=== PATIENT | male | born 1985 | race Caucasian/White ===

== ENCOUNTER 2020-08-21 08:18 | Outpatient (REF) | payer OTHER, SELFPAY ==
--- NOTE | 2020-08-21 09:31 | MHC.AU.P13 ---
Hearing Instrument Fitting- Adult- Binaural Date of Visit: 08/21/20 Hearing Instruments Dispensed: Right Ear: Emergency Room Doctor: Phonak Model: AUDEO M70-R Serial Number: [id number] Warranty: 10/10/2023 Battery Size: Rechargeable Color: CHESTNUT Food Mobile Driver: 1P Type of Dome: Small Power Type of Wax Guard: CERUSHIELD Left Ear: Emergency Room Doctor: Phonak Model: AUDEO M70-R Serial Number: [id number] Warranty: 10/10/2023 Battery Size: Rechargeable Color: CHESTNUT Food Mobile Driver: 1P Type of Dome: Small Power Type of Wax Guard: CERUSHIELD Summary of Fitting: Feedback production planning manager was run. Retention tails taken off the receivers, as they kept pulling the receivers back out of the ear. Verifit performed and levels adjusted to better reach targets. Patient felt 100% was too loud- lowered to 90% and then 80%. Patient felt 80% was comfortable. Patient was pleased with the sound of the instruments, and noted how much more he could now hear. Hearing aid care and maintenance were discussed and practiced. Hearing aids were paired to his phone. Patient had pre-downloaded the sera. Hearing aids paired to the sera. Recommendations: Recommendations: Patient is highly interested in a remote follow-up, as he has a 4 month old baby at home. He will register with Remote Support before the next appointment. His e-mail address is [email or web address] Diagnosis Code(s): Primary Diagnosis: H90.6 Mixed Hearing Loss, Bilateral Signature: Provider: Isela Omalley, [facility]
== END 2020-08-21 08:19 | disposition home or self-care (01) ==
LOC: HO.HAP 08:18
PROVIDERS: PCP Family Medicine; Referring Provider Family Medicine; Visit Provider Family Medicine
DX: H90.6 Mixed conductive and sensorineural hearing loss, bilateral (principal); Z46.1 Encounter for fitting and adjustment of hearing aid
CPT/HCPCS: 92595; V5011; V5020; V5160; V5261

== ENCOUNTER 2020-09-04 09:42 | Outpatient (REF) | payer SELFPAY ==
--- NOTE | 2020-09-04 14:35 | MHC.AU.P13 ---
Hearing Instrument Follow-Up- Binaural Date of Visit: 09/04/20 Right Ear: Corporation Lawyer: Model: AUDEO M70-R Serial Number: [id number] Warranty: 10/10/2023 Battery Size: Rechargeable Color: CHESTNUT Mallet And Die Cutter: 1P Type of Dome: Small Power Type of Wax Guard: CERUSHIELD Dispensed By: [facility] Left Ear: Corporation Lawyer: Phonak Model: AUDEO M70-R Serial Number: [id number] Warranty: 10/10/2023 Battery Size: Rechargeable Color: CHESTNUT Mallet And Die Cutter: 1P Type of Dome: Small Power Type of Wax Guard: CERUSHIELD Dispensed By: [facility] Follow-Up Summary: Patient was seen for hearing aid follow-up via Remote Support. Patient has been overall pleased with the hearing aids. He has been adjusting well, and [employer] shows an average of 14 hours of use a day. He does find that he has been frequently turning the volume down by one step. In [employer], lowered his overall gain by 1. Patient reports that the domes have been popping out of his ears frequently. He thinks the director industrial relations is a hair too short. We can try switching to a longer director industrial relations, as well as trying retention tails or different domes. If none of those options work, molds can be considered. Patient would like to avoid molds, as he says sometimes feeling too blocked can trigger his vertigo. Recommendations: I will ask the desktop manager to contact the patient this afternoon to set up an in-person hearing aid follow-up/maintenance. Diagnosis Code(s): Primary Diagnosis: H90.6 Mixed Hearing Loss, Bilateral Signature: Provider: Isela Omalley, [facility]
== END 2020-09-04 09:43 | disposition home or self-care (01) ==
LOC: HO.HAP 09:42
PROVIDERS: Visit Provider Family Medicine
DX: Z13.89 Encounter for screening for other disorder (principal)

== ENCOUNTER 2020-09-06 09:07 | Outpatient (REF) | payer SELFPAY ==
--- NOTE | 2020-09-06 13:22 | MHC.AU.P13 ---
Hearing Instrument Follow-Up- Binaural Date of Visit: 09/06/20 Right Ear: Slot Shift Manager: Model: AUDEO M70-R Serial Number: [id number] Warranty: 10/10/2023 Battery Size: Rechargeable Color: CHESTNUT Oil Well Directional Surveyor: 2P Type of Dome: Small Power Type of Wax Guard: CERUSHIELD Dispensed By: [facility] Date of Fittin08/21/2020 Left Ear: Slot Shift Manager: Phonak Model: AUDEO M70-R Serial Number: [id number] Warranty: 10/10/2023 Battery Size: Rechargeable Color: CHESTNUT Oil Well Directional Surveyor: 2P Type of Dome: Small Power Type of Wax Guard: CERUSHIELD Dispensed By: [facility] Date of Fittin08/21/2020 Follow-Up Summary: Patient dropped his hearings aid off and waited in the car. Replaced his size 1P receivers with size 2P receivers, as previously discussed in the remote support session. Placed retention tails on receivers. Gave a set of medium power domes to try in case receivers are still popping out. Recommendations: Patient will call if receivers continue to pop out of his ears. Diagnosis Code(s): Primary Diagnosis: H90.6 Mixed Hearing Loss, Bilateral Signature: Provider: Isela Omalley, [facility]
== END 2020-09-06 09:08 | disposition home or self-care (01) ==
LOC: HO.HAP 09:07
PROVIDERS: Visit Provider Family Medicine
DX: Z13.89 Encounter for screening for other disorder (principal)

== ENCOUNTER 2022-06-21 10:47 | Outpatient (REF) | payer SELFPAY ==
--- NOTE | 2022-06-21 12:46 | MHC.AU.HFU ---
Hearing Instrument Follow-Up- Binaural Date of Visit: 06/21/22 Right Ear: Brick Extruder Operator: Phonak Model: AUDEO M70-R Serial Number: [id number] Repair Warranty: 10/10/2023 Battery Size: Rechargeable Color: CHESTNUT Post Office Manager: 1P Type of Dome: Small Power Type of Wax Guard: CERUSHIELD Dispensed By: [facility] Date of Fittin08/21/2020 Left Ear: Brick Extruder Operator: Phonak Model: AUDEO M70-R Serial Number: [id number] Repair Warranty: 10/10/2023 Loss and Damage Warranty: Battery Size: Rechargeable Color: CHESTNUT Post Office Manager: 1P Type of Dome: Small Power Type of Wax Guard: CERUSHIELD Dispensed By: [facility] Date of Fittin08/21/2020 Follow-Up Summary: Hearing Aid Problem - Patient came to office reporting the left aid was and it is not charging properly. When right aid placed in stock insurance salesman in office, the light also did not come on indicating it was charging. Sent left and right aids in for repair under warranty. Patient's receivers and domes place on loaners (right-[id number] and left-[id number]) Recommendations: When repairs received, program aids to 09/04/2020 settings and call patient for P/U with $50.00 service fee per KG Signature:Provider: Ana Laura Nick, [facility]
== END 2022-06-21 10:48 | disposition home or self-care (01) ==
LOC: HO.HAP 10:47
PROVIDERS: Visit Provider Family Medicine
DX: Z13.89 Encounter for screening for other disorder (principal)

== ENCOUNTER 2022-07-22 11:12 | Outpatient (REF) | payer SELFPAY ==
--- NOTE | 2022-07-22 14:21 | MHC.AU.HFU ---
Hearing Instrument Follow-Up- Binaural Date of Visit: 07/22/22 Right Ear: Phonak Ana Lauraeo M70-R SN: [id number] Color: [place] Repair Warranty: 10/10/2023 Loss and Damage Warranty: 10/10/2023 Service Plan: 08/21/2021 Battery Size: Rechargeable Contract Negotiator: 1P Type of Mold: Small power dome Type of Wax Guard: CeruShield Dispensed By: [facility] Date of Fittin08/21/2020 Left Ear: Phonak Ana Lauraeo M70-R SN: [id number] Color: [place] Repair Warranty: 10/10/2023 Loss and Damage Warranty: 10/10/2023 Service Plan: 08/21/2021 Battery Size: Rechargeable Contract Negotiator: 1P Type of Mold: Small power dome Type of Wax Guard: CeruShield Dispensed By: [facility] Date of Fittin08/21/2020 Follow-Up Summary: Isaac picked up his repaired hearing aids and returned the loaners. Tried different size domes as Isaac reported some retention issues with the left hearing aid. Small power dome fits appropriately - Advised to push in further so that the seal mixing operator is flush against his head. Isaac reported that he has tried retention tails in the past but prefers no tail. Discussed option for custom ear molds. Isaac will consider ear molds if problems with retention persist. Recommendations: Hearing instrument maintenance in 6 months, or sooner if needed. Please contact our clinic with any questions or concerns. Diagnosis Code(s): Primary Diagnosis: H90.6 Mixed Hearing Loss, Bilateral Signature: Provider: Rupesh Jones, [facility]
== END 2022-07-22 11:13 | disposition home or self-care (01) ==
LOC: HO.HAP 11:12
PROVIDERS: Visit Provider Family Medicine
DX: Z46.1 Encounter for fitting and adjustment of hearing aid (principal); H90.3 Sensorineural hearing loss, bilateral
CPT/HCPCS: 92593

== ENCOUNTER 2022-08-22 15:45 | Outpatient (REF) | payer SELFPAY | END 2022-08-22 15:46 | disposition home or self-care (01) | LOC: HO.HAP 15:45 | PROVIDERS: Visit Provider Family Medicine | DX: Z13.89 Encounter for screening for other disorder (principal) ==

== ENCOUNTER 2022-08-26 13:02 | Outpatient (REF) | payer SELFPAY | END 2022-08-26 13:03 | disposition home or self-care (01) | LOC: HO.HAP 13:02 | PROVIDERS: Visit Provider Family Medicine | DX: Z13.89 Encounter for screening for other disorder (principal) ==

== ENCOUNTER 2022-09-12 09:48 | Outpatient (REF) | payer SELFPAY | END 2022-09-12 09:49 | disposition home or self-care (01) | LOC: HO.HAP 09:48 | PROVIDERS: Visit Provider Family Medicine | DX: Z13.89 Encounter for screening for other disorder (principal) ==

== ENCOUNTER 2022-11-18 09:22 | Outpatient (REF) | payer SELFPAY ==
--- NOTE | 2022-11-18 13:06 | MHC.AU.HA3 ---
Hearing Instrument Follow-Up- Binaural Date of Visit: 11/18/22 Right Ear: Maurice, Model, Color, Serial Number: Nick Briggs M70-R SN: [id number] Color: [place] Biochemistry Teacher Repair Warranty: 10/10/2023 Biochemistry Teacher Loss and Damage Warranty: 10/10/2023 [facility] Service Plan: 08/21/2021 Earmold/Dome/CShell/SlimTip:Small power dome Type of Wax Guard: CeruShield Dispensed By: [facility], Date of Fittin08/21/2020 Left Ear: Make, Model, Color, Serial Number: Nick Huntero M70-R SN: [id number] Color: [place] Biochemistry Teacher Repair Warranty: 10/10/2023 Biochemistry Teacher Loss and Damage Warranty: 10/10/2023 [facility] Service Plan: 08/21/2021 Earmold/Dome/CShell/SlimTip: Small power dome Type of Wax Guard: CeruShield Dispensed By: [facility], Date of Fittin08/21/2020 Follow-Up Summary: Patient dropped off his left hearing aid, reporting it had suddenly turned off and is now unresponsive. No visible damage on the hearing aid. Cannot turn it on with the button. Tried placing it in a stock ship's pilot, and it is not lighting up or charging. It will be sent to [facility] for repair. Called patient to discuss- he asked if he could sweet pickled fruit maker a pair of loaners, so he has a matching set until the hearing aid returns. Programmed a pair of loaner Phonak Audeo P70-R #[id number], [id number] to the settings from 08/26/22 (previous loaner). The loaners will be in the front office, and he plans to pick them up this afternoon. Recommendations: Patient will be contacted when materials have arrived. Diagnosis Code(s): Primary Diagnosis: H90.6 Mixed Hearing Loss, Bilateral Signature: Provider: Rupesh Omalley, [facility]
== END 2022-11-18 09:23 | disposition home or self-care (01) ==
LOC: HO.HAP 09:22
PROVIDERS: Visit Provider Family Medicine
DX: Z13.89 Encounter for screening for other disorder (principal)

== ENCOUNTER 2022-11-29 13:32 | Outpatient (REF) | payer SELFPAY ==
--- NOTE | 2022-11-29 14:12 | MHC.AU.HFU ---
Hearing Instrument Follow-Up- Binaural Date of Visit: 11/29/22 Right Ear: Lead Performance Support Analyst: Phonak Audeo M70-R SN: [id number] Color: [place] Repair Warranty: 10/10/2023 Loss and Damage Warranty: 10/10/2023 Service Plan: 08/21/2021 Battery Size: Rechargeable Color: CHESTNUT Special Agent Fbi: 1P Type of Dome: Small Power Type of Wax Guard: CeruShield Dispensed By: [facility] Date of Fittin08/21/2020 Left Ear: Lead Performance Support Analyst: Phonak Audeo M70-R SN: [id number] Color: [place] Repair Warranty: 10/10/2023 Loss and Damage Warranty: 10/10/2023 Service Plan: 08/21/2021 Battery Size: Rechargeable Color: CHESTNUT Special Agent Fbi: 1P Type of Dome: Small Power Type of Wax Guard: CeruShield Dispensed By: [facility] Date of Fittin08/21/2020 Follow-Up Summary: Patient was fit with the repaired left aid and programmed with the right aid. Loaners were returned. Noticed the settings picked up did not match the last settings in aids. Patient was going through the automatic adaptation from 80%-100% target for the last settings 09/12/2022, but it did end over the 60 days. Picked up 09/12/2022 settings, deactivated the automatic increase and set aids to 100% target with patient reporting much better sound quality compared to the loaners which had been set with 80%.. Recommendations:Recommendations: Please contact our clinic with any questions or concerns. Diagnosis Code(s):Primary Diagnosis: H90.3 Bilateral Sensorineural Hearing Loss Signature:Provider: Rupesh Nick, [facility]
== END 2022-11-29 13:33 | disposition home or self-care (01) ==
LOC: HO.HAP 13:32
PROVIDERS: Visit Provider Family Medicine
DX: Z13.89 Encounter for screening for other disorder (principal)

== ENCOUNTER 2023-04-23 15:49 | Outpatient (REF) | payer SELFPAY ==
--- NOTE | 2023-04-23 16:43 | MHC.AU.P13 ---
Hearing Instrument Follow-Up- Binaural Date of Visit: 04/23/23 Right Ear: Medical Program Specialist: Phonak Model: AUDEO M70-R Serial Number: SN: [id number] Repair Warranty: 10/10/2023 Loss and Damage Warranty: 10/10/2023 Service Plan: 08/21/2021 Dispensed By: [facility] Date of Fittin08/21/2020 Left Ear: Medical Program Specialist: Phonak Model: AUDEO M70-R Serial Number: SN: [id number] Repair Warranty: 10/10/2023 Loss and Damage Warranty: 10/10/2023 Service Plan: 08/21/2021 Battery Size: Rechargeable Dispensed By: [facility] Date of Fittin08/21/2020 Follow-Up Summary: Patient reports that the right hearing aid will not charge or turn on. Confirmed this in the clinic today. His government affairs specialist is working well to charge the left aid in both slots. Tried resetting the right hearing aid by pressing and holding for 11 seconds and then placing in the government affairs specialist but it did not help. Sending both hearing aids for repair today, just to confirm the left is working well while still in warranty. Patient was set up with loaner Phonak Audeo P70-R aids (SN: [id number]) with size 2P receivers and small power domes. Programmed these devices to his latest [facility] session. He reported comfortable fit and sound quality. Recommendations: Recommendations: Patient will be contacted when materials have arrived. Signature: Provider: Rupesh Gaston, [facility]
== END 2023-04-23 15:50 | disposition home or self-care (01) ==
LOC: HO.HAP 15:49
PROVIDERS: Visit Provider Family Medicine
DX: Z13.89 Encounter for screening for other disorder (principal)

== ENCOUNTER 2023-05-09 09:14 | Outpatient (REF) | payer SELFPAY | END 2023-05-09 09:15 | disposition home or self-care (01) | LOC: HO.HAP 09:14 | PROVIDERS: Visit Provider Family Medicine | DX: Z13.89 Encounter for screening for other disorder (principal) ==

== ENCOUNTER 2024-02-16 13:57 | Outpatient (REF) | payer SELFPAY ==
--- NOTE | 2024-02-16 16:20 | MHC.AU.HA3 ---
Hearing Instrument Follow-Up- Binaural Date of Visit: 02/16/24 Right Ear: Maurice, Model, Color, Serial Number: Nick Briggs M70-R SN: [id number] Color: [place] Textile Bag Sewer Repair Warranty: 10/10/2023 Textile Bag Sewer Loss and Damage Warranty: 10/10/2023 [facility] Service Plan: 08/21/2021 Battery Size: Rechargeable Youth Development Professional/Slim Tube: 1P Earmold/Dome/CShell/SlimTip:Small power dome Type of Wax Guard: CeruShield Dispensed By: [facility] Date of Fittin08/21/2020 Left Ear: Maurice, Model, Color, Serial Number: Nick Briggs M70-R SN: [id number] Color: [place] Textile Bag Sewer Repair Warranty: 10/10/2023 Textile Bag Sewer Loss and Damage Warranty: 10/10/2023 [facility] Service Plan: 08/21/2021 Battery Size: Rechargeable Youth Development Professional/Slim Tube: 1P Earmold/Dome/CShell/SlimTip: Small power dome Type of Wax Guard: CeruShield Dispensed By: [facility] Date of Fittin08/21/2020 Follow-Up Summary: Isaac reports his left hearing aid is not lasting long, does not seem to sit right in the sales consultant insurance, never charges to solid green. Notes the right aid charges normally in either slot. Also notes recent intermittent problem right- he states it seems like bad connection at loan broker. Cleaned and checked aids, replaced domes and wax guards. Listening check positive. Right aid sounds fine in office. Checked settings, both aids are up to date on firmware. Tested left aid in our sales consultant insurance- not charging. Advised of cost to replace right loan broker $150 and to send left out $330. Isaac elects to hold off on both at this time. Discussed dropping left aid at front desk administrator if he wants to send it out, advised to call ahead if he wants a loaner to picking belt operator at that time. He may reach out to [facility] about repairs/ or getting new aids. Recommendations: Recommendations: Please contact our clinic with any questions or concerns. Diagnosis Code(s): Primary Diagnosis: H90.6 Mixed Hearing Loss, Bilateral Signature: Provider: Rupesh Zhang, [facility]
== END 2024-02-16 13:58 | disposition home or self-care (01) ==
LOC: HO.SH 13:57
PROVIDERS: Visit Provider Family Medicine
DX: Z01.118 Encounter for examination of ears and hearing with other abnormal findings (principal); H90.6 Mixed conductive and sensorineural hearing loss, bilateral
CPT/HCPCS: 92593

== ENCOUNTER 2025-06-17 10:48 | Outpatient (REF) | payer SELFPAY ==
--- OUTSIDE RECORDS SUMMARY | 2023-11-14 11:59 | XMS_ITS | Encounter Summary ---
Author Organization [facility] Address [address] [address] Phone Care Team Providers Care Content Management Consultant Name Role Phone Chyna Lawler MD Primary Care Provider + Encounter Details Date Type Department Care Team (Late st Contact Info) Description 11/14/2023 10:59 AM EST Hospital Encounter [facility] [address] [place] [phone] Margi Zambrano, ROLL ON MAN [address] [place] [address] [email or web address] Social History Tobacco Use Types Packs/Day Years Used Date Smoking Tobacco: Former Smokeless Tobacco: Never Education Answer Date Recorded Are you interested in more education? Not on carolyn e 01/11/2023 Are you concerned about learning? Not on file 01/11/2023 No 01/11/2023 No 01/11/2023 Digital Access Answer Date Recorded No 02/11/2023 No 02/11/2023 Reliable internet access at home? Not on file 02/11/2023 Device with a working camera? Not on file Sex and Gender Information Value Date Recorded Sex Assigned at Not on file Legal Sex Male 4:41 PM EDT Gender Identity Not on file Sexual Orientation Not on file documented as of this encounter Plan of Treatment Upcoming Encounters Date Type Department Care Team (Late st Contact Info) Description 10/26/2025 9:45 AM EST Appointment [facility], Bone [facility] - [address] [address] Chyna Lawler MD [address] [place] [phone] [email or web address] documented as of this encounter Procedures Procedure Name Priority Date/Time Associated Diagnosis Comments XR HAND 3 OR MORE VIEWS (LEFT) Routine 11/14/2023 11:06 AM EST Left wrist pain documented in this encounter Results * XR HAND 3 OR MORE VIEWS (LEFT) (11/14/2023 11:06 AM EST) Anatomical Region Laterality Modality Hand Left Computed Radiogr aphy 11/14/2023 11:1 3 AM EST Impressions 11/14/2023 11:15 AM EST No fracture or dislocation. Narrative 11/14/2023 11:15 AM EST XR HAND 3 OR MORE VIEWS (LEFT), XR WRIST 3 OR MORE VIEWS (LEFT) Referring clinician's provided indication for this examination in Epic: S/P Fall COMPARISON: None FINDINGS: No fracture. Normal alignment. Normal joint spaces. No soft tissue swelling. Procedure Note Dakotah Rico MBBS - 11/14/2023 XR HAND 3 OR MORE VIEWS (LEFT), XR WRIST 3 OR MORE VIEWS (LEFT) Referring clinician's provided indication for this examination in Epic:S/P Fall COMPARISON: None FINDINGS: No fracture. Normal alignment. Normal joint spaces. No soft tissueswelling. IMPRESSION: No fracture or dislocation. us Margi Zambrano ROLL ON MAN IMG XR UPPER EXTREMITY Fin al Result documented in this encounter Visit Diagnoses Not on filedocumented in this encounter Care Teams Content Management Consultant Relationship Specialty Start Date End Date Chyna Lawler MD [address] [place] [phone] PCP - General Family Medicine 02/27/22 documented as of this encounter Additional Source Comments The information contained in this document represents components of the legal health record. It is not the complete legal health record.[facility]
--- OUTSIDE RECORDS SUMMARY | 2023-11-14 11:59 | XMS_ITS | Encounter Summary ---
Author Organization [facility] Address [address] [address] Phone Care Team Providers Care Clinic Nurse Name Role Phone Chyna Lawler MD Primary Care Provider + Encounter Details Date Type Department Care Team (Late st Contact Info) Description 11/14/2023 10:59 AM EST Hospital Encounter [facility] [address] [place] [phone] Margi Zambrano, BATON TWIRLER [address] [place] [address] [email or web address] Social History Tobacco Use Types Packs/Day Years [...] Info) Description 10/26/2025 9:45 AM EST Appointment [facility], Bone [facility] - [address] [address] Chyna Lawler MD [address] [place] [phone] [email or web address] documented as of this encounter Procedures Procedure Name Priority Date/Time Associated Diagnosis Comments XR WRIST 3 OR MORE VIEWS (LEFT) Routine 11/14/2023 11:06 AM EST Left wrist pain documented in this encounter Results * XR WRIST 3 OR MORE VIEWS (LEFT) (11/14/2023 11:06 AM EST) Anatomical Region Laterality Modality Wrist Left Computed Radiogr aphy 11/14/2023 11:1 3 [...] No fracture or dislocation. us Margi Zambrano BATON TWIRLER IMG XR UPPER EXTREMITY Fin al Result documented in this encounter Visit Diagnoses Not on filedocumented in this encounter Care Teams Clinic Nurse Relationship Specialty Start Date End Date Chyna Lawler MD [address] [place] [phone] PCP - General Family Medicine 02/27/22 documented as of this encounter Additional Source Comments The information contained in this document represents components of the legal health record. It is not the complete legal health record.[facility]
--- OUTSIDE RECORDS SUMMARY | 2025-06-17 11:51 | XMS_ITS | Encounter Summary ---
Author Organization [facility] Address [address] [address] Phone Care Team Providers Care Store Management Trainee Name Role Phone Pcp, Unknown Primary Care Provider UnavailChyna Amin MD Primary Care Provider + Chyna Lawler MD Unavailable [phone] Chyna Lawler MD Unavailable Encounter Details Date Type Department Care Team (Late st Contact Info) Description 02/18/2022 Transcribe Orders Virtual Department [address] [place] [address] Chyna Lawler MD [address] [place] [phone] [email or web address] Osteogenesis imperfecta (Primary Dx) Social History Tobacco Use Types Packs/Day Years Used Date Smoking Tobacco: Former Smokeless Tobacco: Never Sex and Gender Information Value Date Recorded Sex Assigned at Not on file Legal Sex Male 4:41 PM EDT Gender Identity Not on file Sexual Orientation Not on file documented as of this encounter Plan of Treatment Upcoming Encounters Date Type Department Care Team (Late Contact Info) Description 10/26/2025 9:45 AM EST Appointment [facility], Bone Density - [address] [address] Chyna Lawler MD [address] [place] [address] [phone] documented as of this encounter Results * BD DXA AXIAL (SPINE) WITH HIP (07/25/2022 7:56 AM EST) Anatomical Region Laterality Modality Bone Density Bone Density 07/25/2022 10:0 7 AM EST Impressions 07/25/2022 10:10 AM EST Osteoporosis. Reference Information: The T-score is the number of standard deviations above or below the standard which is normal for young adults at their peak bone mineral density. The World Health Organization (WHO) interprets the T-scores as follows: Above -1 Normal bone density Between -1 and -2.5 Osteopenia Equal to / or below -2.5 Osteoporosis As a practical clinical guideline, osteopenia may be graded as follows: Mild -1 through -1.5 Moderate -1.6 through -2.0 Severe -2.1 through -2.4 References: 1. NIH Osteoporosis and Related Bone Diseases http://www.osteo.org 2. International Society for Clinical Densitometry http://www.iscd.org 3. National Osteoporosis Foundation http://www.nof.org Narrative 07/25/2022 10:10 AM EST STUDY: DUAL ENERGY X-RAY ABSORPTIOMETRY / DXA REASON FOR EXAM: Male, 36 years old. TECHNIQUE: Bone Mineral Density (BMD) measurements of the lumbar spine and bilateral hips were obtained. COMPARISON: None. FINDINGS: L1-L4 T score: -4. This corresponds to osteoporosis Right femoral neck T score: -2.3. This corresponds to osteopenia Right total hip T score: -1.6. This corresponds to osteopenia Left femoral neck T score: -2.2. This corresponds to osteopenia Left total hip T score: -1.8. This corresponds to osteopenia Procedure Note Eliud Garcia MD - 07/25/2022 STUDY: DUAL ENERGY X-RAY ABSORPTIOMETRY / DXA REASON FOR EXAM: Male, 36 years old. TECHNIQUE: Bone Mineral Density (BMD) measurements of the lumbar spineand bilateral hips were obtained. COMPARISON: None. FINDINGS: L1-L4 T score: -4. This corresponds to osteoporosis Right femoral neck T score: -2.3. This corresponds to osteopenia Right total hip T score: -1.6. This corresponds to osteopenia Left femoral neck T score: -2.2. This corresponds to osteopenia Left total hip T score: -1.8. This corresponds to osteopenia IMPRESSION: Osteoporosis. Reference Information: The T-score is the number of standard deviations above or below thestandard which is normal for young adults at their peak bone mineraldensity. The World Health Organization (WHO) interprets the T-scores asfollows: Above -1 Normal bone density Between -1 and -2.5 Osteopenia Equal to / or below -2.5 Osteoporosis As a practical clinical guideline, osteopenia may be graded as follows: Mild -1 through -1.5 Moderate -1.6 through -2.0 Severe -2.1 through -2.4 References: 1. NIH Osteoporosis and Related Bone Diseases http://www.osteo.org 2. International Society for Clinical Densitometry http://www.iscd.org 3. National Osteoporosis Foundation http://www.nof.org Chyna Lawler MD IMG BD BONE DENSITY DEXA Final Result documented in this encounter Visit Diagnoses Diagnosis Osteogenesis imperfecta- Primary Osteogenesis imperfecta documented in this encounter Care Teams Store Management Trainee Relationship Specialty Start Date End Date Pcp, Unknown PCP - General 12/14/21 02/26/22 Chyna Lawler MD [address] [place] [phone] [email or web address] PCP - General Family Medicine 02/27/22 Chyna Lawler MD [address] [place] [phone] Insurance Assigned Provider 05/25/22 02/01/23 Chyna Lawler MD [address] [place] [phone] [email or web address] Insurance Assigned Provider 12/19/24 documented as of this encounter Additional Source Comments The information contained in this document represents components of the legal health record. It is not the complete legal health record.[facility]
--- OUTSIDE RECORDS SUMMARY | 2025-06-17 11:51 | XMS_ITS | Encounter Summary ---
Author Organization [facility] Address [address] [address] Phone Care Team Providers Care After School Program Assistant Name Role Phone Pcp, Unknown Primary Care Provider Chyna Tsang MD Primary Care Provider + Chyna Lawler MD Unavailable [phone] Chyna Lawler MD Unavailable [phone] Encounter Details Date Type Department Care Team (Late st Contact Info) Description 02/25/2022 Transcribe Orders Virtual Department [address] [place] [address] Anthony Zendejas MD [address] [place] [phone] [email or web address] Sore throat (Primary Dx); Dysphagia, unspecified type; Personal history of nicotine dependence Social History Tobacco Use Types Packs/Day Years [...] Info) Description 10/26/2025 9:45 AM EST Appointment [facility], [address] [address] Chyna Lawler MD [address] [place] [phone] [email or web address] documented as of this encounter Visit Diagnoses Diagnosis Sore throat- Primary Acute pharyngitis Dysphagia, unspecified type Personal history of nicotine dependence documented in this encounter Care Teams After School Program Assistant Relationship Specialty Start Date End Date Pcp, Unknown PCP - General 12/14/21 02/26/22 Chyna Lawler MD [address] [place] [address] [email or web address] PCP - General Family Medicine 02/27/22 Chyna Lawler MD [address] [place] [phone] [email or web address] Insurance Assigned Provider 05/25/22 02/01/23 Chyna Lawler MD [address] [place] [phone] [email or web address] Insurance Assigned Provider 12/19/24 documented as of this encounter Additional Source Comments The information contained in this document represents components of the legal health record. It is not the complete legal health record.[facility]
--- OUTSIDE RECORDS SUMMARY | 2025-06-17 11:51 | XMS_ITS | Clinical Summary ---
Author Organization [facility] Address [address] [place] [address] Phone Care Team Providers Care Charhouse Worker Name Role Phone Chyna Lawler MD Primary Care Provider + Chyna Lawler MD Unavailable [phone] Allergies Active Allergy Reactions Criticality Noted Date Comments Amoxicillin Hives 12/14/2021 Medications ibuprofen (ADVIL,MOTRIN) 200 MG tablet Take 200 mg by mouth every 6 (six) hours as needed for pain (specific location in comments). Active DULoxetine (CYMBALTA) 20 MG capsule Take 1 capsule by mouth every morning. 01/12/2024 Active clindamycin (CLEOCIN) 300 MG capsule TAKE ONE CAPSULE BY MOUTH EVERY 12 HOURS UNTIL FINISHED 11/23/2023 Active meloxicam (MOBIC) 15 MG tablet Take 1 tablet (15 mg total) by mouth daily. 30 tablet 02/13/2024 Active Active Problems Problem Noted Date Diagnosed Date Osteoporosis, unspecified os teoporosis type, unspecified pathological fracture presence 05/13/2024 Osteogenesis imperfecta 05/13/2024 Social History Tobacco Use Types Packs/Day Years Used Date Smoking Tobacco: Former Smokeless Tobacco: Never Tobacco Cessation:Counseling Given: Not Answered Education Answer Date Recorded Are you interested [...] on file Sexual Orientation Not on file Last Filed Vital Signs Vital Sign Reading Time Taken Comments Blood Pressure 129/78 2024 12:56 PM EST Pulse 63 2024 12:56 PM EST Temperature 36.3 C (97.3 F) 2024 11:42 AM EST Respiratory Rate 16 2024 12:56 PM EST Oxygen Saturation 100% 2024 12:56 PM EST Inhaled Oxygen Concentration - - Weight 65.8 kg (145 lb) 01/23/2024 9:47 AM EDT p er pt Height 180.3 cm (5' 11 ) 11/13/2023 5:01 PM EST Body Mass Index 20.22 11/13/2023 5:01 PM EST Plan of Treatment Upcoming Encounters Date Type Department Care Team (Late st Contact Info) Description 10/26/2025 9:45 AM EST Appointment [facility], Bone Density [address] [address] Chyna Lawler MD [address] [place] [phone] [email or web address] Health Maintenance Due Date Last Done Comments Adult Td,Tdap Booster 1983 LIPID PANEL 1983 DEPRESSION SCREENING 1995 SMOKING Hx and SMOKELESS TOB ACCO SCREENING 1996 HIV ONE-TIME SCREENING (18-6 5 YEARS) 2001 INFLUENZA VACCINE (#1) 2025 COVID-19 VACCINE (2023-2 5 season) 2025 HEPATITIS C SCREENING Completed 02/26/2022 HEPATITIS A VACCINES Aged Out No long er eligible based on patient's age to complete this topic HIB VACCINES Aged Out No longer eligi ble based on patient's age to complete this topic MENINGOCOCCAL VACCINES (ACWY) Aged Out No longer eligible based on patient's age to complete this topic MENINGOCOCCAL VACCINES (B) Aged Out N o longer eligible based on patient's age to complete this topic PNEUMOCOCCAL VACCINES (0-49 years) Aged Out No longer eligible based on patient's age to complete this topic Medical Devices Not on file Insurance [facility] DIRECT [facility] DIRECT [facility] DIRECT [facility] DIRECT Care Teams Charhouse Worker Relationship Specialty Start Date End Date Chyna Lawler MD [address] [place] [address] [email or web address] PCP - General Family Medicine 02/27/22 Chyna Lawler MD [address] [place] [phone] [email or web address] Insurance Assigned Provider 12/19/24 Additional Source Comments The information contained in this document represents components of the legal health record. It is not the complete legal health record.[facility]
--- OUTSIDE RECORDS SUMMARY | 2025-06-17 11:51 | XMS_ITS | Encounter Summary ---
Author Organization [facility] Address [address] [address] Phone Care Team Providers Care Screw Machine Operator Swiss Type Name Role Phone Pcp, Unknown Primary Care Provider Chyna Tsang MD Primary Care Provider + Chyna Lawler MD Unavailable [phone] Chyna Lawler MD Unavailable [phone] Encounter Details Date Type Department Care Team (Late st Contact Info) Description 01/16/2022 Ancillary Orders [facility] X-Ray [address] [address] Chyna Lawler MD [address] [place] [address] [email or web address] Osteogenesis imperfecta Social History Tobacco Use Types Packs/Day Years [...] Info) Description 10/26/2025 9:45 AM EST Appointment [facility] Bone Density [address] [address] Chyna Lawler MD [address] [place] [phone] documented as of this encounter Results * XR LUMBOSACRAL SPINE 4 OR MORE VIEWS (01/16/2022 12:39 PM EDT) Anatomical Region Laterality Modality L-spine Computed Radiogr aphy 01/16/2022 5:13 PM EDT Impressions 01/16/2022 5:16 PM EDT Age indeterminate mild compression deformities involving mid and lower thoracic vertebrae. Narrative 01/16/2022 5:16 PM EDT XR THORACIC SPINE 3 VIEW, XR LUMBOSACRAL SPINE 4 OR MORE VIEWS COMPARISON: None available FINDINGS: Diffuse demineralization. Minimal levoconvex curvature of the thoracic spine. Age indeterminate mild compression deformities of the mid-lower thoracic vertebrae. Preserved lumbar vertebral body height. No intervertebral space narrowing. Procedure Note Ranulfo Schroeder MD - 01/16/2022 XR THORACIC SPINE 3 VIEW, XR LUMBOSACRAL SPINE 4 OR MORE VIEWS COMPARISON: None available FINDINGS: Diffuse demineralization. Minimal levoconvex curvature of the thoracic spine. Age indeterminate mild compression deformities of the mid-lower thoracicvertebrae. Preserved lumbar vertebral body height. No intervertebral space narrowing. IMPRESSION: Age indeterminate mild compression deformities involving mid and lowerthoracic vertebrae. us Chyna Lawler MD IMG XR SPINE Final Re sult * XR THORACIC SPINE 3 VIEW (01/16/2022 12:38 PM EDT) Anatomical Region Laterality Modality T-spine Computed Radiogr aphy 01/16/2022 5:13 PM EDT Impressions 01/16/2022 5:16 PM EDT Age indeterminate mild compression deformities involving mid and lower thoracic vertebrae. Narrative 01/16/2022 5:16 PM EDT XR THORACIC SPINE 3 VIEW, XR LUMBOSACRAL SPINE 4 OR MORE VIEWS COMPARISON: None available FINDINGS: Diffuse demineralization. Minimal levoconvex curvature of the thoracic spine. Age indeterminate mild compression deformities of the mid-lower thoracic vertebrae. Preserved lumbar vertebral body height. No intervertebral space narrowing. Procedure Note Ranulfo Schroeder MD - 01/16/2022 XR THORACIC SPINE 3 VIEW, XR LUMBOSACRAL SPINE 4 OR MORE VIEWS COMPARISON: None available FINDINGS: Diffuse demineralization. Minimal levoconvex curvature of the thoracic spine. Age indeterminate mild compression deformities of the mid-lower thoracicvertebrae. Preserved lumbar vertebral body height. No intervertebral space narrowing. IMPRESSION: Age indeterminate mild compression deformities involving mid and lowerthoracic vertebrae. Chyna Lawler MD IMG XR SPINE Final Re sult documented in this encounter Visit Diagnoses Diagnosis Osteogenesis imperfecta Osteogenesis imperfecta Osteogenesis imperfecta documented in this encounter Care Teams Screw Machine Operator Swiss Type Relationship Specialty Start Date End Date Pcp, Unknown PCP - General 12/14/21 02/26/22 Chyna Lawler MD [address] [place] [address] PCP - General Family Medicine 02/27/22 Chyna Lawler MD [address] [place] [phone] Insurance Assigned Provider 05/25/22 02/01/23 Chyna Lawler MD [address] [place] [phone] Insurance Assigned Provider 12/19/24 documented as of this encounter Additional Source Comments The information contained in this document represents components of the legal health record. It is not the complete legal health record.[facility]
--- OUTSIDE RECORDS SUMMARY | 2025-06-17 11:51 | XMS_ITS | Patient Health Record ---
Author Organization [facility] Address [address] [place] [address] Support Name Relationship Address Phone Isaac Beckham Guarantor Unknown [phone] Reason For Referral No Information Plan Of Treatment No Information Insurance Providers Payer Name Payer Address Payer Phone Subscriber Number Group Number Insured Name Patient Relationship to Insured Coverage Start Date Coverage End Date CARES Act Isaac Beckham Self - patient is the insured
--- OUTSIDE RECORDS SUMMARY | 2025-06-17 11:51 | XMS_ITS | Encounter Summary ---
Author Organization [facility] Address [address] [address] Phone Care Team Providers Care Household Coordinator Name Role Phone Chyna Lawler MD Primary Care Provider + Chyna Lawler MD Unavailable [phone] Encounter Details Date Type Department Care Team (Late Contact Info) Description 12/20/2024 Transcribe Orders Virtual Department [address] [place] [address] Chyna Lawler MD [address] [place] [phone] [email or web address] Osteoporosis, unspecified osteoporosis type, unspecified pathological fracture presence (Primary Dx) Social History Tobacco Use Types [...] Upcoming Encounters Date Type Department Care Team ([facility] Contact Info) Description 10/26/2025 9:45 AM EST Appointment [facility], Bone Density - [facility] [address] [place] [address] Chyna Lawler MD [address] [place] [phone] [email or web address] Scheduled Orders Name Type Priority Associated Diagnoses Orde r Schedule DXA Screening Imaging Routine Osteoporosis, unspecified osteoporosis type, unspecified pathological fracture presence Expected: 01/19/2025, Expires: 12/20/2025 documented as of this encounter Visit Diagnoses Diagnosis Osteoporosis, unspecified osteoporosis type, unspecified pathological fracture presence- Primary documented in this encounter Care Teams Household Coordinator Relationship Specialty Start Date End Date Chyna Lawler MD [address] [place] [phone] PCP - General Family Medicine 02/27/22 Chyna Lawler MD [address] [place] [phone] [email or web address] Insurance Assigned Provider 12/19/24 documented as of this encounter Additional Source Comments The information contained in this document represents components of the legal health record. It is not the complete legal health record.[facility]
== END 2025-06-17 10:49 | disposition home or self-care (01) ==
LOC: HO.HAP 10:48
PROVIDERS: Visit Provider Family Medicine
DX: Z13.89 Encounter for screening for other disorder (principal)

== ENCOUNTER 2025-06-30 15:21 | Outpatient (REF) | payer SELFPAY ==
--- OUTSIDE RECORDS SUMMARY | 2023-11-14 11:59 | XMS_ITS | Encounter Summary ---
Author Organization [facility] Address [address] [address] Phone Care Team Providers Care Masonry Teacher Name Role Phone Chyna Lawler MD Primary Care Provider + Encounter Details Date Type Department Care Team (Late st Contact Info) Description 11/14/2023 10:59 AM EST Hospital Encounter [facility] [address] [place] [phone] Margi Zambrano, PRINT WASHER [address] [place] [address] [email or web address] Social History Tobacco Use Types Packs/Day Years [...] Info) Description 10/26/2025 9:45 AM EST Appointment [facility], Bone [facility] - [address] [address] Chyna Lawler MD [address] [place] [phone] [email or web address] documented as of this encounter Procedures Procedure [...] No fracture or dislocation. us Margi Zambrano PRINT WASHER IMG XR UPPER EXTREMITY Fin al Result documented in this encounter Visit Diagnoses Not on filedocumented in this encounter Care Teams Masonry Teacher Relationship Specialty Start Date End Date Chyna Lawler MD [address] [place] [phone] PCP - General Family Medicine 02/27/22 documented as of this encounter Additional Source Comments The information contained in this document represents components of the legal health record. It is not the complete legal health record.[facility]
--- OUTSIDE RECORDS SUMMARY | 2023-11-14 11:59 | XMS_ITS | Encounter Summary ---
Author Organization [facility] Address [address] [address] Phone Care Team Providers Care Pantograph I Engraver Name Role Phone Chyna Lawler MD Primary Care Provider + Encounter Details Date Type Department Care Team (Late st Contact Info) Description 11/14/2023 10:59 AM EST Hospital Encounter [facility] [address] [place] [phone] Margi Zambrano, UNDER SHERIFF [address] [place] [address] Social History Tobacco Use Types Packs/Day Years [...] Info) Description 10/26/2025 9:45 AM EST Appointment [facility], Bone [facility] - [address] [address] Chyna Lawler MD [address] [place] [phone] [email or web address] documented as of this encounter Procedures Procedure [...] No fracture or dislocation. us Margi Zambrano UNDER SHERIFF IMG XR UPPER EXTREMITY Fin al Result documented in this encounter Visit Diagnoses Not on filedocumented in this encounter Care Teams Pantograph I Engraver Relationship Specialty Start Date End Date Chyna Lawler MD [address] [place] [phone] PCP - General Family Medicine 02/27/22 documented as of this encounter Additional Source Comments The information contained in this document represents components of the legal health record. It is not the complete legal health record.[facility]
--- OUTSIDE RECORDS SUMMARY | 2025-06-30 19:08 | XMS_ITS | Encounter Summary ---
Author Organization [facility] Address [address] [address] Phone Care Team Providers Care Profiling Machine Operator Name Role Phone Pcp, Unknown Primary Care Provider Chyna Tsang MD Primary Care Provider + Chyna Lawler MD Unavailable [phone] Chyna Lawler MD Unavailable Encounter Details Date Type Department Care Team (Late st Contact Info) Description 01/16/2022 Ancillary Orders [facility] X-Ray [address] [address] Chyna Lawler MD [address] [place] [phone] [email or web address] Osteogenesis imperfecta Social History Tobacco Use Types [...] Info) Description 10/26/2025 9:45 AM EST Appointment [facility] Bone Density [address] [address] Chyna Lawler MD [address] [place] [address] documented as of this encounter Results * [...] imperfecta documented in this encounter Care Teams Profiling Machine Operator Relationship Specialty Start Date End Date Pcp, Unknown PCP - General 12/14/21 02/26/22 Chyna Lawler MD [address] [place] [address] [email or web address] PCP - General Family Medicine 02/27/22 Chyna Lawler MD [address] [place] [phone] [email or web address] Insurance Assigned Provider 05/25/22 02/01/23 Chyna Lawler MD [address] [place] [address] [email or web address] Insurance Assigned Provider 12/19/24 documented as of this encounter Additional Source Comments The information contained in this document represents components of the legal health record. It is not the complete legal health record.[facility]
--- OUTSIDE RECORDS SUMMARY | 2025-06-30 19:08 | XMS_ITS | Encounter Summary ---
Author Organization [facility] Address [address] [address] Phone Care Team Providers Care Roll Out Manager Name Role Phone Chyna Lawler MD Primary Care Provider + Chyna Lawler MD Unavailable [phone] Encounter Details Date Type Department Care Team (Late Contact Info) Description 12/20/2024 Transcribe Orders Virtual Department [address] [place] [address] Chyna Lawler MD [address] [place] [phone] [email or web address] Osteoporosis, unspecified osteoporosis type, unspecified pathological [...] Upcoming Encounters Date Type Department Care Team ([facility] Contact Info) Description 10/26/2025 9:45 AM EST Appointment [facility], Bone Density - [facility] [address] [place] [address] Chyna Lawler MD [address] [place] [phone] [email or web address] Scheduled Orders Name Type Priority Associated Diagnoses Orde r Schedule DXA Screening Imaging Routine Osteoporosis, unspecified osteoporosis type, unspecified pathological fracture presence Expected: 01/19/2025, Expires: 12/20/2025 documented as of this encounter Visit Diagnoses Diagnosis Osteoporosis, unspecified osteoporosis type, unspecified pathological fracture presence- Primary documented in this encounter Care Teams Roll Out Manager Relationship Specialty Start Date End Date Chyna Lawler MD [address] [place] [address] PCP - General Family Medicine 02/27/22 Chyna Lawler MD [address] [place] [phone] [email or web address] Insurance Assigned Provider 12/19/24 documented as of this encounter Additional Source Comments The information contained in this document represents components of the legal health record. It is not the complete legal health record.[facility]
--- OUTSIDE RECORDS SUMMARY | 2025-06-30 19:08 | XMS_ITS | Clinical Summary ---
Author Organization [facility] Address [address] [place] [phone] Phone Care Team Providers Care Agricultural Aircraft Pilot Name Role Phone Chyna Lawler MD Primary Care Provider + Chyna Lawler MD Unavailable [phone] Allergies Active Allergy Reactions Criticality Noted Date [...] Info) Description 10/26/2025 9:45 AM EST Appointment [facility], Bone Density [address] [address] Chyna Lawler MD [address] [place] [phone] [email or web address] Health Maintenance Due Date Last Done Comments Adult Td,Tdap Booster 1983 LIPID PANEL 1983 DEPRESSION SCREENING 1995 SMOKING Hx and SMOKELESS TOB ACCO SCREENING 1996 HIV ONE-TIME SCREENING (18-6 5 YEARS) 2001 INFLUENZA VACCINE (#1) 2025 COVID-19 VACCINE (2024-2 6 season) 2025 HEPATITIS C SCREENING Completed 02/26/2022 [...] topic Medical Devices Not on file Insurance [facility] DIRECT [facility] DIRECT [facility] DIRECT [facility] DIRECT [facility] DIRECT [facility] DIRECT Care Teams Agricultural Aircraft Pilot Relationship Specialty Start Date End Date Chyna Lawler MD [address] [place] [address] [email or web address] PCP - General Family Medicine 02/27/22 Chyna Lawler MD [address] [place] [address] [email or web address] Insurance Assigned Provider 12/19/24 Additional Source Comments The information contained in this document represents components of the legal health record. It is not the complete legal health record.[facility]
--- OUTSIDE RECORDS SUMMARY | 2025-06-30 19:09 | XMS_ITS | Encounter Summary ---
Author Organization [facility] Address [address] [address] Phone Care Team Providers Care Emergency Doctor Name Role Phone Pcp, Unknown Primary Care Provider Chyna Tsang MD Primary Care Provider + Chyna Lawler MD Unavailable [phone] Chyna Lawler MD Unavailable Encounter Details Date Type Department Care Team (Late st Contact Info) Description 02/25/2022 Transcribe Orders Virtual Department [address] [place] [phone] Anthony Zendejas MD [address] [place] [phone] [email or web address] Sore throat (Primary Dx); Dysphagia, unspecified type; [...] Info) Description 10/26/2025 9:45 AM EST Appointment [facility], [address] [address] Chyna Lawler MD [address] [place] [phone] .[email or web address] documented as of this encounter Visit Diagnoses Diagnosis Sore throat- Primary Acute pharyngitis Dysphagia, unspecified type Personal history of nicotine dependence documented in this encounter Care Teams Emergency Doctor Relationship Specialty Start Date End Date Pcp, Unknown PCP - General 12/14/21 02/26/22 Chyna Lawler MD [address] [place] [phone] [email or web address] PCP - General Family Medicine 02/27/22 Chyna Lawler MD [address] [place] [phone] .[email or web address] Insurance Assigned Provider 05/25/22 02/01/23 Chyna Lawler MD [address] [place] [phone] [email or web address] Insurance Assigned Provider 12/19/24 documented as of this encounter Additional Source Comments The information contained in this document represents components of the legal health record. It is not the complete legal health record.[facility]
--- OUTSIDE RECORDS SUMMARY | 2025-06-30 19:09 | XMS_ITS | Patient Health Record ---
Author Organization [facility] Address [address] [place] [address] Support Name Relationship Address Phone Isaac Beckham Guarantor Unknown [phone] Reason For Referral No Information Plan Of Treatment No Information Insurance Providers Payer Name Payer Address Payer Phone Subscriber Number Group Number Insured Name Patient Relationship to Insured Coverage Start Date Coverage End Date CARES Act Isaac Beckham Self - patient is the insured
--- OUTSIDE RECORDS SUMMARY | 2025-06-30 19:09 | XMS_ITS | Encounter Summary ---
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 Name Role Phone Pcp, Unknown Primary Care Provider Chyna Tsang MD Primary Care Provider + Chyna Lawler MD Unavailable Chyna Lawler MD Unavailable [phone] Encounter Details Date Type Department Care Team (Late st Contact Info) Description 02/18/2022 Transcribe Orders Virtual Department [address] [place] [phone] Chyna Lawler MD [address] [place] [phone] [email or web address] Osteogenesis imperfecta (Primary Dx) Social [...] Info) Description 10/26/2025 9:45 AM EST Appointment [facility] - [address] [address] Chyna Lawler MD [address] [place] [address] [phone] documented as of this encounter Results * [...] imperfecta documented in this encounter Care Teams Oyster Fisherman Relationship Specialty Start Date End Date Pcp, Unknown PCP - General 12/14/21 02/26/22 Chyna Lawler MD [address] [place] [phone] [email or web address] PCP - General Family Medicine 02/27/22 Chyna Lawler MD [address] [place] [phone] Insurance Assigned Provider 05/25/22 02/01/23 Chyna Lawler MD [address] [place] [phone] [email or web address] Insurance Assigned Provider 12/19/24 documented as of this encounter Additional Source Comments The information contained in this document represents components of the legal health record. It is not the complete legal health record.[facility]
== END 2025-06-30 15:22 | disposition home or self-care (01) ==
LOC: HO.HAP 15:21
PROVIDERS: Visit Provider Family Medicine
DX: Z13.89 Encounter for screening for other disorder (principal)